=== PATIENT | female | born 1955 | race Caucasian/White ===

== ENCOUNTER 2018-08-14 16:05 | Outpatient (REF) | payer BC, SELFPAY ==
--- NOTE | 2018-08-14 14:00 | PAPFT_PTH ---
PATIENT: Juli Lazo LOC: [facility] U#:[id number] AGE/SX: 63/F ROOM: RE08/14/[address]: Eran Pineda : 1955 BED: DIS: 08/14/2018 SPEC #: [id number] RECD: 08/15/18 13:00 STATUS: THIERRY REKarolina #: [id number] INNA: 08/14/18 14:[address]: Eran Pineda DEPT: [facility] Cytology RECD BY: Nohelia Hunt ENTERED: 08/15/18 13:01 SP TYPE: PAPFT OTHR DR: Porsha Zuleta Tissues: 1 - CX/ENDOCX FOR PAP SMEARS Procedures: PAP THIN PREP/[facility] Screening HPV DNA PROBE Comments: [id number]
[2018-08-15 10:55] LABS: Epithelial Cells Few HPF (Negative)
[2018-08-15 10:56] LABS: Other Cells Few Renal (Negative)
[2018-08-15 10:57] LABS: C & S Indicated? No/Sq. Contamination; Casts 0-2 Coarse Granular LPF (Negative); Crystals Many Amorphous HPF (Negative)
== END 2018-08-14 16:25 ==
LOC: NCHCN 16:05
PROVIDERS: PCP Nurse Practitioner Family; Visit Provider Family Medicine
DX: R30.0 Dysuria (principal); Z00.00 Encounter for general adult medical examination without abnormal findings; Z12.4 Encounter for screening for malignant neoplasm of cervix; Z11.51 Encounter for screening for human papillomavirus (HPV)
CPT/HCPCS: 88142; 81015; 87086; 87624

== ENCOUNTER 2022-01-20 19:40 | Outpatient (REF) | payer MEDICARE, SELFPAY | END 2022-01-20 19:41 | disposition home or self-care (01) | LOC: NCHCN 19:40 | PROVIDERS: PCP Nurse Practitioner Family; Visit Provider Family Medicine | DX: R39.9 Unspecified symptoms and signs involving the genitourinary system (principal) | CPT/HCPCS: 87077; 87086; 87186 ==